=== PATIENT | female | born 1985 ===

== ENCOUNTER → 2019-10-01 08:55 | Outpatient (BNVA) | payer OTHER, SELFPAY | PROVIDERS: Visit Provider Otolaryngology | DX: H92.01 Otalgia, right ear (principal); H61.21 Impacted cerumen, right ear; J02.9 Acute pharyngitis, unspecified | CPT/HCPCS: 69210; 99214 ==

== ENCOUNTER 2020-04-29 | Outpatient (CLI) | payer OTHER, SELFPAY ==
[2020-04-29 10:27] LABS: Basophils % 0.3 %; Eosinophils # 0.2 10^3/uL (0.0-0.8); Hematocrit 41.2 % (37.0-47.0); Hemoglobin 13.2 g/dL (11.5-15.3); Lymphocytes # 2.7 10^3/uL (0.8-4.8); Lymphocytes % 36.7 %; Mean Corpuscular Volume 84.3 fL (81-99); Mean Platelet Volume 10.8 fL (7.4-10.4); Monocytes # 0.4 10^3/uL (0.2-0.9); Monocytes % 5.4 %; Neutrophils # 4.14 10^3/uL (1.8-7.7); Neutrophils % 55.5 %; Nucleated Red Blood Cells % 0 %; Platelet Count 358 10^3/cmm (130-400); Red Blood Count 4.89 10^6/uL (4.1-5.3); Red Cell Distribution Width 12.4 % (12.1-15.1); White Blood Count 7.5 10^3/uL (4.0-10.0)
[2020-04-29 10:48] LABS: Alanine Aminotransferase 34 U/L (0-33); Albumin Level 4.5 g/dL (3.5-5.2); Alkaline Phosphatase 104 IU/L (35-105); Anion Gap 13.5 (5-19); Aspartate Amino Transferase 21 U/L (0-32); Blood Urea Nitrogen 8 mg/dL (6-20); Calcium 8.8 mg/dL (8.5-10.5); Carbon Dioxide 25 mmol/L (22-29); Chloride 103 mmol/L (98-107); Chol HDL Ratio 3.81 mg/dL (0.0-4.40); Cholesterol 198 mg/dL (0-200); Globulin 3.6 g/dL (1.3-4.6); Glomerular Filtration Rate 140.4 mL/min (90-130); Glucose 100 mg/dL (65-115); HDL Cholesterol 52 mg/dL (60-100); LDL Cholesterol Calculated 119 mg/dL (50-129); LDL HDL Ratio 2.29 RATIO (0.00-3.22); Osmolality Calculated 280 mOsm/kg (285-295); Potassium 4.5 mmol/L (3.5-5.1); Sodium 137 mmol/L (136-145); Total Bilirubin 0.3 mg/dL (0.15-1.2); Total Protein 8.1 g/dL (6.6-8.7); Triglycerides 136 mg/dL (0-150)
[2020-04-29 10:51] LABS: Estmated Average Glucose 108; Hemoglobin A1C 5.4 % (4.0-6.0)
[2020-04-29 11:07] LABS: Add Urine Microscopic? YES; Bilirubin Urine Neg (NEGATIVE); Blood Urine Neg (Negative); Glucose Urine UA Norm (Normal); Ketones Urine Negative (Negative); Leukocyte Esterase Urine Trace (Negative); Nitrate Urine Negative (Negative); Protein Urine Neg (Negative); Urine Appearance SL Hazy (CLEAR); Urine Color Yellow (Yellow); Urobilinogen Urine Neg (Negative); pH Urine 6 (5-7)
[2020-04-29 11:11] LABS: RBC Urine 0-4 /hpf (0-2)
[2020-04-29 11:12] LABS: Add Urine Culture? Yes; Bacteria Urine 1+; WBC Urine 25-40 /hpf (0-5)
[2020-04-30 14:47] LABS: HIV 1 & 2 Antibody Non-Reactive (Non-Reactiv); HIV 1 & 2 Antigen Non-Reactive (Non-Reactiv)
== END 2020-04-29 23:55 | disposition home or self-care (01) ==
LOC: LAB 08-11 08:37
PROVIDERS: Visit Provider Internal Medicine
DX: Z11.4 Encounter for screening for human immunodeficiency virus [HIV] (principal); E78.00 Pure hypercholesterolemia, unspecified; R73.09 Other abnormal glucose
CPT/HCPCS: 36415; 80053; 80061; 80323; 81001; 83036; 85025; 87086; 87806

== ENCOUNTER 2020-05-28 13:32 | Outpatient (CLI) | payer OTHER, SELFPAY ==
[2020-05-28 14:45] LABS: Hepatitis B Surface Antigen Non-Reactive (Nonreactive)
[2020-05-28 15:24] LABS: Gamma Glutamyl Transferase 73 U/L (5-36)
== END 2020-05-28 13:33 | disposition home or self-care (01) ==
LOC: LAB 13:35
PROVIDERS: Visit Provider Internal Medicine
DX: R74.8 Abnormal levels of other serum enzymes (principal)
CPT/HCPCS: 36415; 82977; 87340

== ENCOUNTER → 2021-02-15 09:33 | Outpatient (BNVA) | payer SELFPAY | PROVIDERS: Referring Provider Student in an Organized Health Care Education/Training Program; Visit Provider Dermatology | DX: Z01.89 Encounter for other specified special examinations (principal) ==

== ENCOUNTER → 2021-04-07 07:51 | Outpatient (BNVA) | payer OTHER, SELFPAY | PROVIDERS: Visit Provider Nurse Practitioner Women's Health | DX: N92.6 Irregular menstruation, unspecified (principal) | CPT/HCPCS: 81025; 84702 ==

== ENCOUNTER → 2021-04-19 10:45 | Outpatient (BNVA) | payer OTHER, SELFPAY | PROVIDERS: Visit Provider Nurse Practitioner Women's Health | DX: O09.521 Supervision of elderly multigravida, first trimester; Z3A.00 Weeks of gestation of pregnancy not specified | CPT/HCPCS: 81000 ==

== ENCOUNTER → 2021-05-25 14:40 | Outpatient (BNVA) | payer OTHER, SELFPAY | PROVIDERS: Visit Provider Obstetrics & Gynecology | DX: O09.521 Supervision of elderly multigravida, first trimester (principal) | CPT/HCPCS: 80307; 80361; 84315; 85027; 86592; 86762; 86803; 86850; 86900; 87086; 87340; 87806 ==

== ENCOUNTER → 2021-05-27 00:01 | Outpatient (BNVA) | payer OTHER, SELFPAY | PROVIDERS: Visit Provider Obstetrics & Gynecology | DX: O09.521 Supervision of elderly multigravida, first trimester (principal) | CPT/HCPCS: 82950 ==

== ENCOUNTER → 2021-05-30 08:50 | Outpatient (BNVA) | payer OTHER, SELFPAY | PROVIDERS: Visit Provider Obstetrics & Gynecology | DX: Z34.90 Encounter for supervision of normal pregnancy, unspecified, unspecified trimester (principal) | CPT/HCPCS: 82951; 82952 ==

== ENCOUNTER → 2021-06-01 14:15 | Outpatient (BNVA) | payer OTHER, SELFPAY | PROVIDERS: Visit Provider Obstetrics & Gynecology | DX: Z34.80 Encounter for supervision of other normal pregnancy, unspecified trimester (principal) | CPT/HCPCS: 84315; 87491; 87591 ==

== ENCOUNTER 2021-06-02 07:40 | Outpatient (CLI) | payer OTHER, SELFPAY | END 2021-06-02 07:41 | disposition home or self-care (01) | PROVIDERS: PCP Internal Medicine; Visit Provider Internal Medicine | DX: Z01.89 Encounter for other specified special examinations (principal) | CPT/HCPCS: 36415 ==

== ENCOUNTER → 2021-06-22 12:07 | Outpatient (BNVA) | payer OTHER, SELFPAY | PROVIDERS: PCP Internal Medicine; Visit Provider Nurse Practitioner Women's Health | DX: Z34.90 Encounter for supervision of normal pregnancy, unspecified, unspecified trimester (principal); R82.5 Elevated urine levels of drugs, medicaments and biological substances; K21.9 Gastro-esophageal reflux disease without esophagitis | CPT/HCPCS: 80307; 82105; 84315 ==

== ENCOUNTER → 2021-08-11 08:09 | Outpatient (BNVA) | payer OTHER, SELFPAY | PROVIDERS: PCP Internal Medicine; Visit Provider Obstetrics & Gynecology | DX: Z34.92 Encounter for supervision of normal pregnancy, unspecified, second trimester (principal); Z36.2 Encounter for other antenatal screening follow-up; Z3A.23 23 weeks gestation of pregnancy | CPT/HCPCS: 76816 ==

== ENCOUNTER → 2021-09-09 08:29 | Outpatient (BNVA) | payer OTHER, SELFPAY | PROVIDERS: PCP Internal Medicine; Visit Provider Obstetrics & Gynecology | DX: Z34.90 Encounter for supervision of normal pregnancy, unspecified, unspecified trimester (principal) | CPT/HCPCS: 82951; 82952; 85027 ==

== ENCOUNTER → 2021-10-26 09:33 | Outpatient (BNVA) | payer OTHER, SELFPAY | PROVIDERS: PCP Internal Medicine; Visit Provider Nurse Practitioner Women's Health | DX: R82.5 Elevated urine levels of drugs, medicaments and biological substances; K21.9 Gastro-esophageal reflux disease without esophagitis; O99.013 Anemia complicating pregnancy, third trimester | CPT/HCPCS: 80307; 84315 ==

== ENCOUNTER → 2021-11-07 08:09 | Outpatient (BNVA) | payer OTHER, SELFPAY | PROVIDERS: PCP Internal Medicine; Visit Provider Obstetrics & Gynecology | DX: Z34.90 Encounter for supervision of normal pregnancy, unspecified, unspecified trimester (principal) | CPT/HCPCS: 84315; 87081 ==

== ENCOUNTER → 2021-11-22 08:56 | Outpatient (BNVA) | payer OTHER, SELFPAY | PROVIDERS: PCP Internal Medicine; Visit Provider Obstetrics & Gynecology | DX: Z34.90 Encounter for supervision of normal pregnancy, unspecified, unspecified trimester (principal); Z20.822 Contact with and (suspected) exposure to COVID-19 | CPT/HCPCS: 84315; 87635 ==

== ENCOUNTER 2021-11-24 06:35 | Inpatient (IN) | payer OTHER, SELFPAY ==
[2021-11-24] VITALS (69 sets, daily range): BP systolic 93–188; BP diastolic 50–85; PULSE 55–184; RESP 16–18; TEMP 36.1–36.9; O2SAT 79–100; BMI 26.7
[2021-11-24] MEDS: lactated ringers 1,000 ML 999 ML IV ×2 (07:04→09:23)
[2021-11-24 07:16] LABS: Basophils % 0.2 %; Eosinophils # 0.1 10^3/uL (0.0-0.8); Eosinophils % 0.8 %; Hematocrit 31.6 % (37.0-47.0); Hemoglobin 9.8 g/dL (11.5-15.3); Lymphocytes # 2.4 10^3/uL (0.8-4.8); Lymphocytes % 27.6 %; Mean Corpuscular Hemoglobin 24.9 pg (28.0-34.0); Mean Corpuscular Volume 80.2 fl (81-99); Mean Platelet Volume 11.9 fL (7.4-10.4); Monocytes # 0.5 10^3/uL (0.2-0.9); Monocytes % 5.3 %; Neutrophils # 5.66 10^3/uL (1.8-7.7); Neutrophils % 65.9 %; Nucleated Red Blood Cells % 0 %; Platelet Count 277 10^3/cmm (130-400); Red Blood Count 3.94 10^6/uL (4.1-5.3); Red Cell Distribution Width 14.1 % (12.1-15.1); White Blood Count 8.6 10^3/uL (4.0-10.0)
[2021-11-24 07:53] LABS: Amphetamines Screen Urine Negative (Negative); Barbiturates Screen Urine Negative (Negative); Benzodiazepines Screen Urine Negative (Negative); Cocaine Screen Urine Negative (Negative); Opiate Screen Urine Negative (Negative); PCP Screen Urine Negative (Negative); THC Screen Urine Negative (Negative)
[2021-11-24] MEDS: oxytocin 30 UNIT/500 ML BAG IV (08:00)
--- NOTE | 2021-11-24 08:40 | P.HPUD_ITS ---
Labor & Delivery H&P Update Date of Procedure: November 24, 2021 Date H&P Performed: 11/22/21 H&P update information: I have reviewed H&P completed within last 30 days, I have examined patient prior to procedure, No changes to prior documentation and H&P is in [facility] EMR on date indicated Admission Diagnosis:
--- NOTE | 2021-11-24 11:06 | P.ANESASSM_ITS ---
Pre-Anesthetic Assessment Height/Weight: Height 1.6 m Weight 68.492 kg Temp Pulse Resp BP Pulse Ox 97.2 F L 86 17 98/54 79 L 11/24/21 10:22 11/24/21 11:02 11/24/21 08:48 11/24/21 11:02 11/24/21 10:53 Familial anesthetic complications: None Was Beta Calista taken within 24 hours: N/A Was Clonidine taken within 24 hours: N/A Social No alcohol and No tobacco Exam alert, oriented x 3, clear to auscultation bilaterally and regular rate & rhythm Airway Submandibular: within normal limits Cervical ROM: within normal limits Mallampati: Class II Dentition: full History/ROS No significant history except as noted Anesthetic Plan ASA status: 2 Anesthesia: Regional (specify below) (Labor Epidural) Risk of > 500 ml blood loss (7ml/kg in children): Yes, adequate IV access and fluids planned Medications/Allergies Home Medications Medication Instructions Recorded Confirmed Last Taken Type PNV 153-FA 400 mcg-om3 35 mg-dha tab PO 04/07/21 11/22/21 Unknown History 25 mg-epa 5 mg-fish oil chew tablet ( Gummies) pantoprazole 40 mg granules 40 mg PO DAILY 06/01/21 11/22/21 Unknown History delayed-release for susp in packet (Protonix) breast pump (Pump In Style #1 ea 09/28/21 11/22/21 Unknown Rx Advanced) ferrous gluconate 324 mg (37.5 mg 324 mg PO BID tab 10/10/21 11/22/21 Unknown History iron) tablet Allergies Allergy/AdvReac Type Severity Reaction Status Date / Time berny Allergy Skin Uncoded 11/22/21 09:02 berny--rash/itching Current Medications Generic Name Dose Route Start Last Admin Trade Name Freq PRN Reason Stop Dose Admin Oxytocin 30 unit in 500 mls @ 1 mls/hr 11/24/21 08:00 11/24/21 09:15 Pitocin IV 12 milliunit/min .Q24H SILAS 12 mls/hr Titration Protocol 1 MILLIUNIT/MIN Ropivacaine 200 mg in 100 mls @ 13 mls/hr 11/24/21 09:15 11/24/21 10:20 Naropin Premix EPIDURAL 13 mls/hr .Q7H42M SILAS Administration Lactated Ringer's 1,000 mls @ 999 mls/hr 11/24/21 09:15 11/24/21 09:57 Lactated Ringers IV 500 mls/hr .Q1H1M PRN Infusion See label comments FORMERLY [facility] Anesthesia Medical History GERD (gastroesophageal reflux disease) Since the age of 24 and has been present outside of as well. No pertinent past medical history Denies diabetes, asthma, hypertension, seizures, DVT/PE PCP: Dr. Quiroga Surgical History No history of previous surgery Family History Mother Diabetes Hypertension Father Hyperlipidemia HLA B27 (HLA B27 positive) Family history of premature coronary artery disease, Onset Age: 33 UT Denies family history of Colon cancer Ovarian cancer Clotting disorder Breast cancer Bleeding disorder Uterine cancer Thyroid disease Stroke Female Reproductive History : 3 Data Anesthesia : 11/24/21 06:50 Short CBC 11/24/21 Range/Units 06:50 WBC 8.6 (4.0-10.0) 10^3/uL Hgb 9.8 L (11.5-15.3) g/dL Hct 31.6 L (37.0-47.0) % MCV 80.2 L (81-99) fl Plt Count 277 (130-400) 10^3/cmm Neut % (Auto) 65.9 % Neut # (Auto) 5.66 (1.8-7.7) 10^3/uL Blood Bank 11/24/21 06:50 Blood Type B Positive Rho(D) Type Positive Antibody Screen Negative Cardiac Studies: No Data to Display Anesthesia Procedures Epidural Time Out Performed: Yes Consents Signed: Procedure Consent Consent: requested by attending/covering physician, from patient, risks and benefits reviewed and patient agrees to proceed Lumbar Level: L3-L4 Epidural position: sitting Epidural procedure: sterile prep of area, 1% lidocaine to numb the area, 18 g needle, neg for paresthesia, test dose given, 1.5% xylocaine 1:200k epi, placed PCEA, no systemic response, sterile dressing applied and 0.2% Ropiavacaine @ mls/hr (13) Additional Comments: CODIE at 4cm, cath at 9cm, bolused 5mls of 2% lido PF
[2021-11-24] MEDS: dextrose 5%-lactated ringers 1,000 ML 125 ML IV (11:48)
--- NOTE | 2021-11-24 12:46 | PM.MISC ---
Miscellaneous Note Purpose of Documentation: Epidural Bolus Note: Epidural bolused with 4mls of 0.25% bup, 100mcg fentanyl.
[2021-11-24] MEDS: lidocaine 2% INJ 20 mL INJECTION (13:30)
--- NOTE | 2021-11-24 13:54 | PM.DELIVERY ---
Delivery Note: Date of delivery: November 24, 2021 - PRE-DELIVERY DIAGNOSIS: 36-year-old 3 para 1-0-1-1 at 39 weeks and 0 days GBS negative Anemia on iron GERD on medication Advanced maternal age-low risk NIPT Elective induction of labor POST-DELIVERY DIAGNOSIS: Vaginal delivery on 11/24/2021. PROCEDURE: Vaginal delivery on 11/24/2021 ANESTHESIA: Epidural anesthesia and local anesthesia with 2% lidocaine. DELIVERING PHYSICIAN: Yumiko Levy FACOG PRE-DELIVERY COURSE: Ms. Smith is a 36-year-old 3 para 1-0-1-1 at 39 weeks and 0 days who presented to labor and delivery for elective induction of labor. Her was overall uncomplicated other than anemia for which she was taking iron tablets. When she presented to labor and delivery she was noted to have irregular contractions and on exam she was noted to be 4 cm's 80% and -2 station unchanged from her previous clinic visit. She was admitted to labor and delivery. tracing was category 1. She was started on Pitocin titrated to a maximum of 12 mIU and with this she started to have regular contractions every 2 to 3 minutes. She grew uncomfortable and an epidural was placed. Shortly after the epidural she was noted to be 6 to 7 cm 90% and -1 station. She had spontaneous rupture of membranes with meconium fluid at 10:40 AM at which time she was 8 cm. She progressed well after this and was noted to be fully dilated and +1 at 12:10 PM. tracing continue to remain category 1 and she was very comfortable with the epidural. She was allowed to labor down for about 45 minutes. At this time station of the head was +2 to +3 station. She was set up in lithotomy position ready to push at 1:04 PM. DELIVERY NOTE: She was set up in lithotomy position and was pushing effectively. She was noted to be +3 station and continued pushing well. The head delivered in JAMES position, nuchal cord was not present. The shoulders and rest of the body followed with her next push. The baby's mouth and nose were suctioned and the baby was handed to the waiting care mgr Dr. Gutierrez. The placenta delivered spontaneously intact with membranes and was discarded. The fundus was noted to be firm and well contracted. The vagina and cervix were inspected and no cervical or sulcal lacerations were noted. The perineum was noted to have a second-degree perineal laceration which was repaired in the usual fashion with 2-0 Vicryl [address]1. Rectal exam was done and sphincter and rectum were intact. Baby girl (Violet) born at 1:25 PM with 8/9, weighing 6 pounds 8 ounces, 2955 g 19 inches long. Placenta was delivered spontaneously intact with membranes at 1:28 PM. Cotyledons were intact , inserted umbilical cord with 3 vessels noted. Estimated blood loss 250 mL. Complications-none, both baby and mother were left to recover in a stable condition. This documentation was created by [employer] bench assembler operator software (known for inherent bench assembler operator error). Every effort was made to assure accuracy of bench assembler operator. Any obvious errors or omissions should be clarified with the author of the document. History History History 3 Term 2 Miscarriages/Ectopic 1 0 Living Children 2 Other History: 3, Para 2012 VIP x 1, VAVD x 1 X 1 1----> VIP-2014 at 6 weeks-medication 2-----> 10/21/2017, 40 weeks; female, (Justyna) 6 lbs, 2 oz. Vaginal, vacuum used during delivery-likely secondary to maternal exhaustion-patient stated she pushed for 3 hours, no complications during . Meconium fluid but no complications; Delivery in [place]. 3---> 11/24/2021,[id number] induction, female(Violet) weighing 6 pounds 8 ounces, vaginal delivery by Dr. Levy at [facility]. Meconium fluid but baby did well. Second-degree perineal tear. Coding Level of Care Code Acute Top Ironer for Alessia Tesfaye
[2021-11-24] MEDS: lanolin oint 7 gm 1 APPLIC TOPICAL (15:58)
[2021-11-24] MEDS: ibuprofen 800 mg tablet PO ×2 (15:58→21:19)
[2021-11-24] MEDS: benzocaine-menthol 78 gm Canister 1 SPRAY TOPICAL (15:59)
--- NOTE | 2021-11-24 16:24 | ANE.PACU2 ---
Inpatient post-anesthesia follow up: Airway intact: Yes Vital signs: Temperature 97.0 F Pulse Rate 150 Respiratory Rate 17 Blood Pressure 188/74 Pulse Oximetry 79 Oxygen Delivery Me thod Room Air Oxygen Flow Rate Fraction of Inspir ed Oxygen Hydration adequate: Yes Nausea and vomiting: No Pain level: 2 Mental status: Baseline
[2021-11-24] MEDS: docusate sodium 100 mg Capsule PO (18:34)
[2021-11-25] VITALS (10 sets, daily range): BP systolic 95–127; BP diastolic 50–65; PULSE 63–109; RESP 16–17; TEMP 36.1–36.6; O2SAT 99
[2021-11-25 02:22] LABS: Hematocrit 26.4 % (37.0-47.0); Hemoglobin 8.4 g/dL (11.5-15.3); Mean Corpuscular HGB Conc 31.8 g/dL (30.0-36.0); Mean Corpuscular Hemoglobin 25.8 pg (28.0-34.0); Mean Corpuscular Volume 81.2 fl (81-99); Mean Platelet Volume 11.9 fL (7.4-10.4); Platelet Count 241 10^3/cmm (130-400); Red Blood Count 3.25 10^6/uL (4.1-5.3); Red Cell Distribution Width 14.2 % (12.1-15.1); White Blood Count 10.5 10^3/uL (4.0-10.0)
[2021-11-25] MEDS: pantoprazole DR 40 mg Tablet PO (07:38)
[2021-11-25] MEDS: docusate sodium 100 mg Capsule PO (08:32)
[2021-11-25] MEDS: prenatal vitamin Capsule 1 CAP PO (08:32)
[2021-11-25] MEDS: ibuprofen 800 mg tablet PO (09:20)
--- NOTE | 2021-11-25 14:00 | PM.OBGYDC ---
Discharge Providers INSURANCE VERIFICATION SPECIALIST Date of Admission: 11/24/21 06:35 Date of Discharge: 11/25/21 Attending Provider at Admission: Yumiko Goins MD Attending Provider at Discharge: Yumiko Goins MD PRE-DELIVERY DIAGNOSIS: 36-year-old 3 para 1-0-1-1 at 39 weeks and 0 days GBS negative Anemia on iron GERD on medication Advanced maternal age-low risk NIPT Elective induction of labor POST-DELIVERY DIAGNOSIS: Vaginal delivery on 11/24/2021. PROCEDURE: Vaginal delivery on 11/24/2021 ANESTHESIA: Epidural anesthesia and local anesthesia with 2% lidocaine. DELIVERING PHYSICIAN: Yumiko Levy FACOG PRE-DELIVERY COURSE: Ms. Smith is a 36-year-old 3 para 1-0-1-1 at 39 weeks and 0 days who presented to labor and delivery for elective induction of labor.? Her was overall uncomplicated other than anemia for which she was taking iron tablets.? When she presented to labor and delivery she was noted to have irregular contractions and on exam she was noted to be 4 cm's 80% and -2 station unchanged from her previous clinic visit.? She was admitted to labor and delivery.? tracing was category 1.? She was started on Pitocin titrated to a maximum of 12 mIU and with this she started to have regular contractions every 2 to 3 minutes.? She grew uncomfortable and an epidural was placed.? Shortly after the epidural she was noted to be 6 to 7 cm 90% and -1 station.? She had spontaneous rupture of membranes with meconium fluid at 10:40 AM at which time she was 8 cm.? She progressed well after this and was noted to be fully dilated and +1 at 12:10 PM.? tracing continue to remain category 1 and she was very comfortable with the epidural.? She was allowed to labor down for about 45 minutes.? At this time station of the head was +2 to +3 station.? She was set up in lithotomy position ready to push at 1:04 PM. DELIVERY? NOTE: She was set up in lithotomy position and was pushing effectively. She was noted to be? +3 station and continued pushing well. The head delivered in JAMES position, nuchal cord was not present. The shoulders and rest of the body followed with her next push. The baby's mouth and nose were suctioned and the baby was handed to the waiting car worker Dr. Gutierrez.? The placenta delivered spontaneously intact with membranes and was discarded. The fundus was noted to be firm and well contracted. The vagina and cervix were inspected and no cervical or sulcal lacerations were noted.? The perineum was noted to have a second-degree perineal laceration which was repaired in the usual fashion with 2-0 Vicryl on a CT1.? Rectal exam was done and sphincter and rectum were intact. Baby girl (Violet) born at 1:25 PM with 8/9, weighing 6 pounds 8 ounces, 2955 g 19 inches long. Placenta was delivered spontaneously intact with membranes at 1:28 PM.? Cotyledons were intact ,? inserted umbilical cord with 3 vessels noted. Estimated blood loss 250 mL. Complications-none, both baby and mother were left to recover in a stable condition. HOSPITAL COURSE: She underwent an uncomplicated vaginal delivery on 11/24/2021. She did well on day 0 and was ambulating well, tolerating regular diet, voiding freely, passing flatus. She was breast-feeding/pumping and formula feeding without difficulty and bonding well with her daughter. Pain was well-controlled with by mouth pain medication. She denied nausea, vomiting, fever, chills, shortness of breath, leg pain. She had moderate vaginal bleeding. On day # 1 she continued to do well with stable vital signs and stable hemoglobin at 8.4 with stable vital signs. She was discharged home on day 1 in a stable condition, as she desired early discharge. Warning signs for endometritis, mastitis, DVT/PE were reviewed with her. Post delivery activity restrictions were also reviewed with her at all her questions were answered to her satisfaction. Plans on using natural methods or short-term contraception which we will discuss further at her next visit EXAM AT DISCHARGE: Gen.: No acute distress Abdomen: Soft, fundus firm below umbilicus Legs: No calf tenderness, no pedal edema. CONDITION AT DISCHARGE: Stable This documentation was created by [employer] superintendent overhead distribution software (known for inherent superintendent overhead distribution error). Every effort was made to assure accuracy of superintendent overhead distribution. Any obvious errors or omissions should be clarified with the author of the document. Primary Care Provider: Frantz Quiroga, Reason for Visit Reason for Visit: Contractions Information Peripartum Data: Delivery Method: Vaginal Physical Exam Urinary Catheter Management: Davis: Cath Placed During This Visit: yes, but has since been removed by the nurse Reason for Continuing Indwelling Catheter: Decision to DC Catheter Urinary Catheter Date of Insertion: 11/24/21 Urinary Catheter Time of Insertion: 10:45 Date Urinary Catheter Removed: 11/24/21 Time Urinary Catheter Discontinued: 13:00 History History History 3 Term 2 Miscarriages/Ectopic 1 0 Living Children 2 Other History: 3, Para 2012 VIP x 1, VAVD x 1 X 1 1----> VIP-2014 at 6 weeks-medication 2-----> 10/21/2017, 40 weeks; female, (Justyna) 6 lbs, 2 oz. Vaginal, vacuum used during delivery-likely secondary to maternal exhaustion-patient stated she pushed for 3 hours, no complications during . Meconium fluid but no complications; Delivery in [place]. 3---> 11/24/2021,[id number] induction, female(Violet) weighing 6 pounds 8 ounces, vaginal delivery by Dr. Levy at [facility]. Meconium fluid but baby did well. Second-degree perineal tear. Discharge Data Studies Completed and Pending Pending at discharge Category Date Time Status PRBC [Leukocyte Reduced RBC] Routine Lab 11/24/21 06:50 Results Type and Screen Routine Lab 11/24/21 06:50 Results Laboratory Results WBC 10.5 10^3/uL (4.0-10.0) H 11/25/21 02:00 RBC 3.25 10^6/uL (4.1-5.3) L 11/25/21 02:00 Hgb 8.4 g/dL (11.5-15.3) L 11/25/21 02:00 Hct 26.4 % (37.0-47.0) L 11/25/21 02:00 MCV 81.2 fl (81-99) 11/25/21 02:00 MCH 25.8 pg (28.0-34.0) L 11/25/21 02:00 MCHC 31.8 g/dL (30.0-36.0) 11/25/21 02:00 RDW 14.2 % (12.1-15.1) 11/25/21 02:00 Plt Count 241 10^3/cmm (130-400) 11/25/21 02:00 MPV 11.9 fL (7.4-10.4) H 11/25/21 02:00 Neut % (Auto) 65.9 % 11/24/21 06:50 Lymph % (Auto) 27.6 % 11/24/21 06:50 Mellette % (Auto) 5.3 % 11/24/21 06:50 Eos % (Auto) 0.8 % 11/24/21 06:50 Baso % (Auto) 0.2 % 11/24/21 06:50 Neut # (Auto) 5.66 10^3/uL (1.8-7.7) 11/24/21 06:50 Lymph # (Auto) 2.4 10^3/uL (0.8-4.8) 11/24/21 06:50 Mellette # (Auto) 0.5 10^3/uL (0.2-0.9) 11/24/21 06:50 Eos # (Auto) 0.1 10^3/uL (0.0-0.8) 11/24/21 06:50 Baso # (Auto) 0.0 10^3/uL (0.0-0.1) 11/24/21 06:50 Nucleated RBC % (auto) 0 % 11/24/21 06:50 Nucleated RBCs # 0.0 /100WBC 11/24/21 06:50 Urine Opiates Screen Negative ng/mL (Negative) 11/24/21 06:10 Ur Barbiturates Screen Negative ng/mL (Negative) 11/24/21 06:10 Ur Phencyclidine Scrn Negative ng/mL (Negative) 11/24/21 06:10 Ur Amphetamines Screen Negative ng/mL (Negative) 11/24/21 06:10 U Benzodiazepines Scrn Negative ng/mL (Negative) 11/24/21 06:10 Urine Cocaine Screen Negative ng/mL (Negative) 11/24/21 06:10 U Marijuana (THC) Screen Negative ng/mL (Negative) 11/24/21 06:10 Blood Type B Positive 11/24/21 06:50 Rho(D) Type Positive 11/24/21 06:50 Antibody Screen Negative 11/24/21 06:50 Crossmatch See Detail 11/24/21 06:50 Vitals Last Vital Signs Temp 97.9 F 11/25/21 09:19 Pulse 109 H 11/25/21 09:20 Resp 16 11/25/21 09:20 BP 127/65 11/25/21 09:20 Pulse Ox 79 L 11/24/21 10:53 Discharge Plan Discharge Patient Disposition: Home Condition: Stable Prescriptions: New ibuprofen 800 mg tablet 800 mg PO Q8H Qty: 30 0RF docusate sodium 100 mg Capsule 100 mg PO BID PRN (Reason: constipation) Qty: 30 0RF hydrocodone-acetaminophen 5-325 mg tablet 1 tab PO Q6H Qty: 10 0RF Rx Instructions: Alternate with ibuprofen Continued Gummies 400 mcg-35 mg- 25 mg-5 mg tablet,chewable PO 0RF (DME) breast pump [Pump In Style Advanced] Device See Rx Instructions .ROUTE .MEDSUPPLY Qty: 1 0RF Rx Instructions: As directed pantoprazole [Protonix] [address] for susp in packet 40 mg PO DAILY 0RF Rx Instructions: Takes in place of pepcid sometimes ferrous gluconate 324 mg (37.5 mg iron) tablet 324 mg PO BID 0RF Discharge Orders: Discharge Order (Routine); Ordered 11/25/21 Ordered By: Yumiko Goins Referrals: Yumiko Goins MD [Physician] - 01/11/22 8:30 am Discharge Diet: Regular Discharge Activity: Limit activity as instructed Patient Instructions: Expression, Collection and Storage of Breast Milk (DC), How to Increase Your Milk Supply (DC), Bleeding (DC), Preeclampsia and Eclampsia After Delivery (GEN), OB Discharge Report, OB Food/Drug Interaction Guide, Opioid Safety, OB Home Care, OB Vaginal Deliveries - [facility] Activity Restrictions/Additional Instructions: No heavy lifting for 6 weeks, pelvic rest for 6 weeks Follow-up with Dr. Levy at 6 weeks Emergency room precautions reviewed Discharge Attestations INSURANCE VERIFICATION SPECIALIST Time Spent in Discharge Care*: greater than 30 min Coding Level of Care Code Acute Grave Cleaner for Loring Mera
== END 2021-11-25 15:45 | disposition home or self-care (01) | DRG 807 ==
LOC: OPOB 11:19 → OBGYN 11:19
PROVIDERS: Admitting Provider Obstetrics & Gynecology; PCP Internal Medicine; Visit Provider Obstetrics & Gynecology
DX: O77.0 Labor and delivery complicated by meconium in amniotic fluid (principal); Z37.0 Single live birth; O99.02 Anemia complicating childbirth; O70.1 Second degree perineal laceration during delivery; Z3A.39 39 weeks gestation of pregnancy; O75.89 Other specified complications of labor and delivery; K21.9 Gastro-esophageal reflux disease without esophagitis
CPT/HCPCS: 36415; 51702; 59409; 80306; 85025; 85027; 86850; 86900; 86920; J2795; J3010; J3490

== ENCOUNTER → 2022-01-18 16:17 | Outpatient (BNVA) | payer OTHER, SELFPAY | PROVIDERS: PCP Internal Medicine; Visit Provider Obstetrics & Gynecology | DX: Z01.419 Encounter for gynecological examination (general) (routine) without abnormal findings (principal); D64.9 Anemia, unspecified | CPT/HCPCS: 85025; 87624 ==

== ENCOUNTER 2022-06-23 14:27 | Outpatient (CLI) | payer OTHER, SELFPAY ==
--- NOTE | 2022-06-23 14:35 | XR_ITS ---
WS: [id number] Exam: XR lumbar spine 2-3V* [id number] Date/Time of Exam: 06/23/2022 2:35 PM Reason For Exam: Z79.899 - Other longterm (current) drug therapy No fracture or dislocation. Disc spaces are well preserved. Posterior elements are intact. Slight str aightening. No scoliosis. XR/XR lumbar spine 2-3V* [id number] IMPRESSION: 1. Slight straightening of the lumbar spine otherwise normal study.
--- NOTE | 2022-06-23 14:35 | XR_ITS ---
WS: [id number] Exam: XR sacroiliac jts m 3V [id number] Date/Time of Exam: 06/23/2022 2:35 PM Reason For Exam: Z79.899 - Other mcc (current) drug therapy No fracture or dislocation. The sacroiliac joints are open. Very minimal degenerative change with mil d bony sclerosis. XR/XR sacroiliac jts m 3V [id number] IMPRESSION: 1. Mild bilateral SI joint DJD. 2. No fracture or other significant finding.
== END 2022-06-23 14:28 | disposition home or self-care (01) ==
LOC: RAD 14:29
PROVIDERS: PCP Internal Medicine; Visit Provider Internal Medicine Rheumatology
DX: M19.90 Unspecified osteoarthritis, unspecified site (principal); M45.6 Ankylosing spondylitis lumbar region; Z79.899 Other long term (current) drug therapy
CPT/HCPCS: 72100; 72202

== ENCOUNTER 2022-07-07 08:18 | Outpatient (CLI) | payer OTHER, SELFPAY ==
[2022-07-07 09:08] LABS: Basophils % 0.3 %; Eosinophils # 0.2 10^3/uL (0.0-0.8); Eosinophils % 2.7 %; Hematocrit 38.1 % (37.0-47.0); Hemoglobin 11.9 g/dL (11.5-15.3); Lymphocytes # 2.3 10^3/uL (0.8-4.8); Lymphocytes % 38.6 %; Mean Corpuscular HGB Conc 31.2 g/dL (30.0-36.0); Mean Corpuscular Hemoglobin 25.7 pg (28.0-34.0); Mean Corpuscular Volume 82.3 fl (81-99); Mean Platelet Volume 10.2 fL (7.4-10.4); Monocytes # 0.4 10^3/uL (0.2-0.9); Monocytes % 6.2 %; Neutrophils # 3.13 10^3/uL (1.8-7.7); Nucleated Red Blood Cells % 0 %; Platelet Count 356 10^3/cmm (130-400); Red Blood Count 4.63 10^6/uL (4.1-5.3); Red Cell Distribution Width 13.6 % (12.1-15.1)
[2022-07-07 09:15] LABS: Erythrocyte Sedimentation Rate 9 mm/hr (0-15)
[2022-07-07 09:17] LABS: Estmated Average Glucose 105; Hemoglobin A1C 5.3 % (4.0-6.0)
[2022-07-07 09:33] LABS: Alanine Aminotransferase 48 U/L (0-33); Albumin Level 3.9 g/dL (3.5-5.2); Alkaline Phosphatase 130 U/L (35-105); Anion Gap 12.3 (5-19); Aspartate Amino Transferase 26 U/L (0-32); Blood Urea Nitrogen 10 mg/dL (6-20); Calcium 8.7 mg/dL (8.5-10.5); Carbon Dioxide 27 mmol/L (22-29); Chloride 103 mmol/L (98-107); Cholesterol 196 mg/dL (0-200); Globulin 3.1 g/dL (1.3-4.6); Glomerular Filtration Rate 138.8 mL/min (90-130); Glucose 96 mg/dL (65-115); HDL Cholesterol 40 mg/dL (60-100); LDL Cholesterol Calculated 127 mg/dL (50-129); LDL HDL Ratio 3.18 RATIO (0.00-3.22); Osmolality Calculated 285 mOsm/kg (285-295); Potassium 4.3 mmol/L (3.5-5.1); Sodium 138 mmol/L (136-145); Thyroid Stimulating Hormone 0.56 uIU/mL (0.27-4.20); Total Bilirubin 0.2 mg/dL (0.15-1.2); Triglycerides 147 mg/dL (0-150)
[2022-07-10 14:02] LABS: HLA-B27 POSITIVE (NEGATIVE)
== END 2022-07-07 08:19 | disposition home or self-care (01) ==
PROVIDERS: PCP Internal Medicine; Referring Provider Family Medicine; Visit Provider Internal Medicine Rheumatology
DX: Z00.00 Encounter for general adult medical examination without abnormal findings (principal); R73.09 Other abnormal glucose; E78.00 Pure hypercholesterolemia, unspecified
CPT/HCPCS: 80053; 80061; 83036; 84443; 85025; 85651; 86140; 86812

== ENCOUNTER → 2023-03-14 09:51 | Outpatient (BNVA) | payer OTHER, SELFPAY | PROVIDERS: PCP Internal Medicine; Visit Provider Family Medicine | DX: R79.89 Other specified abnormal findings of blood chemistry (principal); K21.9 Gastro-esophageal reflux disease without esophagitis; M45.9 Ankylosing spondylitis of unspecified sites in spine; M19.90 Unspecified osteoarthritis, unspecified site; M94.0 Chondrocostal junction syndrome [Tietze]; Z82.49 Family history of ischemic heart disease and other diseases of the circulatory system | CPT/HCPCS: 85025 ==

== ENCOUNTER 2023-03-19 08:38 | Outpatient (CLI) | payer OTHER, SELFPAY ==
[2023-03-19 09:54] LABS: Basophils % 0.5 %; Eosinophils # 0.2 10^3/uL (0.0-0.8); Eosinophils % 2.1 %; Hematocrit 36.8 % (37.0-47.0); Hemoglobin 11.5 g/dL (11.5-15.3); Lymphocytes # 2.7 10^3/uL (0.8-4.8); Lymphocytes % 35.6 %; Mean Corpuscular HGB Conc 31.3 g/dL (30.0-36.0); Mean Corpuscular Hemoglobin 25.1 pg (28.0-34.0); Mean Corpuscular Volume 80.3 fl (81-99); Mean Platelet Volume 10.7 fL (7.4-10.4); Monocytes # 0.4 10^3/uL (0.2-0.9); Monocytes % 5.3 %; Neutrophils # 4.26 10^3/uL (1.8-7.7); Neutrophils % 56.4 %; Nucleated Red Blood Cells % 0 %; Platelet Count 381 10^3/cmm (130-400); Red Blood Count 4.58 10^6/uL (4.1-5.3); Red Cell Distribution Width 14.2 % (12.1-15.1); White Blood Count 7.6 10^3/uL (4.0-10.0)
[2023-03-19 10:16] LABS: Alanine Aminotransferase 31 U/L (0-33); Albumin Level 3.8 g/dL (3.5-5.2); Alkaline Phosphatase 113 U/L (35-105); Anion Gap 12.3 (5-19); Aspartate Amino Transferase 19 U/L (0-32); Blood Urea Nitrogen 5 mg/dL (6-20); Calcium 8.6 mg/dL (8.5-10.5); Carbon Dioxide 25 mmol/L (22-29); Chloride 104 mmol/L (98-107); Globulin 3.2 g/dL (1.3-4.6); Glomerular Filtration Rate 138.1 mL/min (90-130); Glucose 96 mg/dL (65-115); Osmolality Calculated 281 mOsm/kg (285-295); Potassium 4.3 mmol/L (3.5-5.1); Sodium 137 mmol/L (136-145); Total Bilirubin 0.2 mg/dL (0.15-1.2)
[2023-03-19 11:49] LABS: Erythrocyte Sedimentation Rate 21 mm/hr (0-15)
[2023-03-19 12:09] LABS: C Reactive Protein 5.9 mg/L (0.0-4.9)
[2023-03-19 12:50] LABS: Chol HDL Ratio 3.91 mg/dL (0.0-4.40); Cholesterol 184 mg/dL (0-200); HDL Cholesterol 47 mg/dL (60-100); LDL Cholesterol Calculated 114 mg/dL (50-129); LDL HDL Ratio 2.43 RATIO (0.00-3.22); Triglycerides 114 mg/dL (0-150)
[2023-03-19 12:51] LABS: Estmated Average Glucose 111; Hemoglobin A1C 5.5 % (4.0-6.0)
== END 2023-03-19 08:39 | disposition home or self-care (01) ==
PROVIDERS: Internal Medicine Rheumatology; PCP Internal Medicine; Visit Provider Family Medicine
DX: M45.6 Ankylosing spondylitis lumbar region (principal); Z79.899 Other long term (current) drug therapy; R79.89 Other specified abnormal findings of blood chemistry
CPT/HCPCS: 36415; 80053; 80061; 83036; 85025; 85651; 86140

== ENCOUNTER 2023-04-27 12:44 | Outpatient (CLI) | payer OTHER, SELFPAY ==
[2023-04-27 12:59] VITALS: BMI 25.7
--- NOTE | 2023-04-27 13:00 | ECG_ITS ---
[facility] Test Date: 2023-04-27 Pat Name: Mariah Smith Department: Room: Gender: Female Lowerator Operator: Melissa Vargas : 1985 Requested By: Chaz Saba Order Number: [id number] Onofre MD: Thomas Rico M.D. Interpretive Statements NAME OF STUDY: TREADMILL STRESS ECHOCARDIOGRAM INDICATION: [Chest Pain, ] EXERCISE DATA: The patient was exercised by Caleb protocol. Baseline heart rate was 90 beats per minute. Baseline blood pressure was 107/58 millimeters of mercury. Target heart rate was 155 beats per minute. Maximum heart rate achieved was 164 which was 105% of the target heart rate. Maximum blood pressure was 144/48 millimeters of mercury. Total exercise time was 5 minutes and 33 seconds. Maximum METs achieved was 7. The reason for ending the test was maximal effort achieved. The patient complained of shortness of breath during the stress test, which then resolved at the end of the test. ELECTROCARDIOGRAM: BASELINE: Showed sinus rhythm, normal axis, no significant ST-T changes at the baseline noted. [] EXERCISE: At the peak exercise level, [] No significant ST-T changes suggestive of ischemia noted. [] RECOVERY: During the recovery period, heart rate dropped appropriately. No significant ST-T changes in the recovery suggestive of ischemia noted. [] CONCLUSION: 1. Exercise capacity is fair 2. Heart rate response was appropriate 3. Blood pressure response was appropriate 4. Symptoms not suggestive of ischemia. 5. Electrocardiogram portion of the stress test was not suggestive of ischemia. 6. Stress echocardiogram will be reported separately Electronically Signed On 04-27-2023 17:56:32 CDT by Thomas Rico M.D. [email or web address]
--- NOTE | 2023-04-27 13:01 | USCV_ITS ---
Mariah Smith Age: 37 Gender: F : 1985 Exam Date: 04/27/2023 13:14 Ordering Phys: Chaz Saba MD Technologist: LENO [place]am [place] [facility] [place] Indication: family hx cad Rhythm: Sinus Patient History: n/a Cardiac Medications: n/a Medications in past 24 hours: none Contrast: Stress Results Protocol: Caleb Total dose(mL): Exercise Duration (min:sec): 05:33 METS: 7.0 Resting HR: 57 Resting BP: 107 / 58 Peak HR: 164 Peak BP: 144 / 85 Max Predicted HR: 182 90 % Max Predicted HR Target HR: 155 Double Product: [id number] Stress Summary: The patient's target heart rate was achieved BP Response: Normal Reason for Termination: Reached target heart rate or work-load Cardiac Symptoms: None ECG Analysis Resting ECG: Normal sinus rhythm with no significant ST T wave changes Stress ECG: At the peak exercise level, No significant ST-T changes suggestive of ischemia noted. Arrhythmia: None MEASUREMENTS (Male/Female) Normal Values 2D ECHO LVOT Diameter 2.0 cm LV Ejection Fraction MOD 2C 62.5 % LV Ejection Fraction 2C AL 63.4 % FINDINGS At baseline, LV systolic function is normal with EF of 55-60%. No regional wall motion abnormalities seen. At stress level, no regional wall motion abnormalities are noted. LV is hyperdynamic. Although patient reached target heart rate on exercise, at time of imaging, heart rates had dropped and imaging was performed 10-20 beats below target heart rates. This reduces the sensitivity of stress test CONCLUSIONS 1. At baseline, LV systolic function is normal with EF 55 to 60%. No regional wall motion abnormalities are seen. 2. No regional wall motion abnormalities are seen on stress imaging. However imaging was performed 10-20 beats below target heart rate. 3. Stress test is indeterminate because of imaging performed significantly below target heart rate. 4. No stress induced ischemic EKG changes seen Thomas Rico MD (Electronically Signed) Final Date: 27 April 2023 15:55 S
[2023-04-27 14:09] VITALS: BP 96/51; PULSE 87
== END 2023-04-27 12:45 | disposition home or self-care (01) ==
LOC: CDL 12:45
PROVIDERS: PCP Family Medicine; Visit Provider Family Medicine
DX: R07.9 Chest pain, unspecified (principal); Z82.49 Family history of ischemic heart disease and other diseases of the circulatory system
CPT/HCPCS: 93017; 93350

== ENCOUNTER 2023-05-08 08:16 | Outpatient (CLI) | payer OTHER, SELFPAY ==
--- NOTE | 2023-05-08 08:35 | US_ITS ---
WS: [id number] RIGHT UPPER QUADRANT ULTRASOUND HISTORY: ELEVATED LFT'S/RUQ PAIN COMPARISON: None available. Liver: 14.3 cm in length. Normal size liver and echogenicity. No bile duct dilatation or mass. Portal Vein: Normal hepatopetal flow with monophasic waveform. Gallbladder: Normally distended gallbladder with no stones or wall thickening. CBD: 0.2 cm Pancreas: Normal size and echogenicity. Right kidney: 9.8 cm in length. Normal size and echogenicity. No hydronephrosis or mass. Aorta and IVC: Unremarkable abdominal aorta and IVC. No ascites. IMPRESSION: Normal RIGHT upper quadrant ultrasound.
== END 2023-05-08 08:17 | disposition home or self-care (01) ==
PROVIDERS: PCP Family Medicine; Visit Provider Family Medicine
DX: R10.11 Right upper quadrant pain (principal); R74.8 Abnormal levels of other serum enzymes
CPT/HCPCS: 76705; 85025

== ENCOUNTER → 2024-10-31 09:53 | Outpatient (BNVA) | payer OTHER, SELFPAY | PROVIDERS: PCP Family Medicine; Visit Provider Family Medicine | DX: Z82.49 Family history of ischemic heart disease and other diseases of the circulatory system (principal); R73.09 Other abnormal glucose; R79.89 Other specified abnormal findings of blood chemistry | CPT/HCPCS: 80053; 80061; 82977; 83036; 84439; 84443; 85025 ==